=== PATIENT | female | born 1970 | race Caucasian/White ===

== ENCOUNTER 2023-02-16 18:44 | Emergency (ER) | payer OTHER ==
[~2023-02-16] VITALS: Ht 162.6 cm; Wt 75.7 kg
[~2023-02-16 18:44] MED LIST: ACET-3194 PO; AMLO-258 PO; BENA40TA92 PO; CANA300T PO; HYOS-28 PO; METF-446 PO; ONDA4TAB7 SL
[2023-02-16 20:22] VITALS: BP 126/70
[2023-02-16 20:39] LABS: APPEARANCE,URINE CLEAR (CLEAR); BILIRUBIN,URINE NEGATIVE (NEGATIVE); COLOR,URINE LIGHT-YELLOW (YELLOW); GLUCOSE, URINE (UA) >=1000 mg/dL (NEGATIVE); KETONES,URINE NEGATIVE (NEGATIVE); LEUKOCYTE ESTERASE ,URINE 250 Leu/uL (NEGATIVE); NITRATE,URINE NEGATIVE (NEGATIVE); OCCULT BLOOD,URINE NEGATIVE (NEGATIVE); PROTEIN,URINE NEGATIVE (NEGATIVE); UROBILINOGEN,URINE 0.2 mg/dL (0.2-1.0)
[2023-02-16 21:00] LABS: BACTERIA,URINE FEW /HPF (None Seen); SQUAMOUS EPITHELIAL CELL,UR RARE /HPF (0-2); WBC,URINE 26-50 /HPF (0-1); YEAST,URINE BUDDING FEW /HPF (None Seen)
[2023-02-16] MEDS ORDERED: PRED20TA3 PO (21:34)
[2023-02-16] MEDS ORDERED: CEFD300C3 PO (21:34)
[2023-02-16] MEDS ORDERED: IBUP-2070 PO (21:34)
[2023-02-16] MEDS ORDERED: METH-811 PO (21:34)
[2023-02-16] MEDS ORDERED: CEFTRIAXONE 1G VIAL IM ONE (22:00)
[2023-02-16] MEDS ORDERED: KETOROLAC 60 MG VIAL (30MG/ML) IM ONE (22:00)
== END 2023-02-16 21:57 | disposition home or self-care (01) ==
LOC: EDH 18:44
DX: N39.0 Urinary tract infection, site not specified (principal); M54.50 Low back pain, unspecified; M79.605 Pain in left leg; M79.604 Pain in right leg; I10 Essential (primary) hypertension; E78.00 Pure hypercholesterolemia, unspecified; E11.9 Type 2 diabetes mellitus without complications; G89.29 Other chronic pain; Z79.84 Long term (current) use of oral hypoglycemic drugs; Z79.899 Other long term (current) drug therapy; Z90.89 Acquired absence of other organs; Z90.710 Acquired absence of both cervix and uterus
CPT/HCPCS: 99284; 87088; 81001; 96372 ×2; J0696; J1885